=== PATIENT | female | born 1930 | race Caucasian/White ===

== ENCOUNTER 2016-10-16 13:01 | Inpatient (IN) | payer MEDICARE, OTHER ==
[~2016-10-16] VITALS: Ht 152.4 cm; Wt 65.3 kg
[~2016-10-16 13:01] MED LIST: ALBU2.5V38 IH; AMLO5TAB2 PO; ATEN50TA PO; ATOR10TA PO; Acyclovir PO; CETI-194 PO; ERGO50003 PO; ESOM40CA PO; ESTR42.53 VG; EZET10TA PO; FEBU80TA PO; GABA300C PO; GUAI120013 PO; HYDR-3026 PO; MIDO5TAB PO; NITR0.4T6 SL; OXYC1TAB8 PO; PRED5TAB PO; TRAZ-147 PO; TRIA1CAP2 PO; VIT1CAPS7 PO; ZALE10CA PO
--- NOTE | 2016-10-16 13:05 | NUR ---
DR VERGARA AT BEDSIDE FOR EVAL
--- NOTE | 2016-10-16 13:05 | NUR ---
EKG IN PROGRESS
--- NOTE | 2016-10-16 13:08 | NUR ---
JHONATHAN RA FROM HOME FOR SOB EXACERBATION, HX OF COPD, PATIENT HAS CAREGIVER AT BEDSIDE, DENIES PAIN, GIVEN 5 MG ALBUTERAL BREATHING TX ON FIELD, PLACED ON MONITOR UPON ARRIVAL WITH MD AT BEDSIDE, WILL CONTINUE TO MONITOR CLOSELY.
[2016-10-16] MEDS ORDERED: methylPREDNISolone SOD SUCC 125 MG/2ML VIAL ONE (13:10)
[2016-10-16] MEDS ORDERED: IPRATROPIUM NEB FS 0.5 MG/2.5 ML AMPUL.NEB ONE (13:16)
[2016-10-16] MEDS ORDERED: ALBUTEROL FS 2.5 MG/3 ML VIAL.NEB ONE (13:16)
[2016-10-16 13:18] LABS: ABG BASE EXCESS -0.1 mmol/L; ABG OXYGEN SATURATION 87.5 % (92.0-98.5); ABG PCO2 38.2 mmHg (35.0-45.0); ABG PH 7.418 (7.350-7.450); ABG PO2 54.6 mmHg (75.0-100.0); AaDO2 157.8 mmHg; COHb 0.7 % (0.5-1.5); MetHb 0.3 % (0.0-1.5); O2Hb 86.6 % (94.0-97.0); SITE, ABG Left Radial; VENT MODE, BG Nasal Cannula
[2016-10-16 13:21] LABS: BASOPHILS # (AUTO) 0.1 /CMM (0.0-0.2); BASOPHILS % (AUTO) 0.9 % (0.0-2.0); EOSINOPHILS # (AUTO) 0.1 /CMM (0.0-0.7); EOSINOPHILS % (AUTO) 0.7 % (0.0-6.0); HEMATOCRIT 44 % (33-45); HEMOGLOBIN 14.2 g/dL (11.5-14.8); LYMPHOCYTES # (AUTO) 3.2 /CMM (0.8-4.8); LYMPHOCYTES % (AUTO) 22.1 % (20.0-44.0); MEAN CORPUSCULAR HEMOGLOBIN 25 PG (26.0-33.0); MEAN CORPUSCULAR HGB CONC 32 g/dl (31.0-36.0); MEAN CORPUSCULAR VOLUME 79 fL (82-100); MONOCYTES # (AUTO) 0.6 /CMM (0.1-1.30); MONOCYTES % (AUTO) 4.2 % (2.0-12.0); NEUTROPHILS # (AUTO) 10.4 /CMM (1.8-8.9); NEUTROPHILS % (AUTO) 72.1 % (43.0-81.0); PLATELET COUNT (AUTO) 439 /CMM (150-450); WHITE BLOOD COUNT (AUTO) 14.4 K/uL (4.3-11.0)
[2016-10-16 13:28] LABS: CALCIUM, SERUM 9.4 mg/dL (8.5-10.1); CARBON DIOXIDE 30 mmol/L (21-32); CHLORIDE 103 mmol/L (98-107); CREATININE 1.1 mg/dL (0.6-1.3); GLUCOSE 135 mg/dL (74-106); POTASSIUM 3.5 mmol/L (3.5-5.1); SODIUM SERUM 142 mmol/L (136-145); UREA NITROGEN, BLOOD 36 mg/dL (7-18)
[2016-10-16] MEDS ORDERED: LEVO200T8 PO (13:30)
[2016-10-16] MEDS ORDERED: PHEN16.226 PO (13:30)
[2016-10-16] MEDS ORDERED: DIPH1TAB70 PO (13:30)
[2016-10-16] MEDS ORDERED: ALBUTEROL FS 2.5 MG/3 ML VIAL.NEB NEB ONE (13:30)
[2016-10-16] MEDS ORDERED: IPRATROPIUM NEB FS 0.5 MG/2.5 ML AMPUL.NEB NEB ONE (13:30)
[2016-10-16] MEDS ORDERED: DOCU-25 PO (13:30)
[2016-10-16] MEDS ORDERED: AZEL137S7 NS (13:30)
[2016-10-16] MEDS ORDERED: LEVOFLOXACIN 750 MG /D5W 150ML PIGGYBACK IV ONE (13:30)
[2016-10-16] MEDS ORDERED: OXYC-34 PO (13:30)
[2016-10-16] MEDS ORDERED: IV NS 0.9% 1,000 ML BAG IV ONE (13:30)
[2016-10-16] MEDS ORDERED: AMLO5TAB4 PO (13:30)
[2016-10-16] MEDS ORDERED: IPRA0.2S9 IH (13:30)
[2016-10-16] MEDS ORDERED: OXYC30TA86 PO (13:30)
[2016-10-16] MEDS ORDERED: methylPREDNISolone SOD SUCC 125 MG/2ML VIAL IV ONE (13:30)
[2016-10-16] MEDS ORDERED: METH4TAB3 PO (13:32)
[2016-10-16 13:35] LABS: TROPONIN I < 0.017 ng/mL (0.00-0.056)
[2016-10-16] MEDS ORDERED: IV SET PRIMARY 1 EA INFUS.SET MC ONE (13:35)
[2016-10-16] MEDS ORDERED: IV NS 0.9% 2,000 ML ONE (13:35)
[2016-10-16 13:40] LABS: ALANINE AMINOTRANSFERASE 21 U/L (12-78); ALBUMIN 3.3 g/dL (3.4-5.0); ALKALINE PHOSPHATASE 107 U/L (46-116); ASPARTATE AMINOTRANSFERASE 13 U/L (15-37); B-TYPE NATRIURETIC PEPTIDE 769 PG/ML (0-125); BILIRUBIN,DIRECT 0.1 mg/dL (0.0-0.2); BILIRUBIN,TOTAL 0.2 mg/dL (0.2-1.0); TOTAL PROTEIN, SERUM 7.6 g/dL (6.4-8.2)
--- NOTE | 2016-10-16 13:47 | NUR ---
CALLED NURSING SUP. FOR TELE BED
[2016-10-16] MEDS ORDERED: LEVOFLOXACIN 750 MG /D5W 150ML 150 ML IV ONE (14:00)
[2016-10-16] MEDS ORDERED: IV SET PRIMARY PUMP SET 1 EA INFUS.SET MC ONE ×2 (14:00→16:22)
--- NOTE | 2016-10-16 14:01 | NUR ---
TELE ROOM 104
--- NOTE | 2016-10-16 14:08 | NUR ---
EPIC PAGED, BLUEPRINT ENGINEER
[2016-10-16 14:15] LABS: INR 1.1 (0.87-1.13); PROTHROMBIN TIME 11.5 SECS (9.5-12.7)
--- NOTE | 2016-10-16 14:27 | NUR ---
[facility] REPAGED
--- NOTE | 2016-10-16 15:30 | NUR ---
RN NOTE RECEIVED PT ON [place] FROM OSTEOPATHIC MEDICINE TEACHER, PT IS AOX3, NC O2, 5L/MIN, SAT 97% LUNGS SOUNDS RHONCHI, COARSE, PT'S SKIN HOT, DRY TO TOUCH, TEMP 101, DENIES PAIN, IV FLUID RUNNING VIA GRAVITY, LEVOFLOXACIN 750 MG IV RUNNING AT 100 ML/H, PT HAS SPASTIC R SHOULDER, PT ON STREET PHOTOGRAPHER SR 92, IV IN R THUMB 24 G AND LEFT ANTERIOR ANKLE 22 G, IN DIAPER, SKIN INTACT, ABDOMEN DISTENDED, SOFT, BOWEL SOUNDS PRESENT, PT CO DIARRHEA FOR THE LAST COUPLE DAYS, NO NAUSEA/VOMITING, PT HAS HISTORY OF 2 EPISODES OF PNEUMONIA IN THE PAST 6 MONTHS. BED IN LOW AND LOCKED POSITION, CALL LIGHT WITHIN REACH, WILL CONTINUE TO MONITOR AND CARRY OUT ORDERS.
[2016-10-16 16:00] VITALS: BP 125/54
[2016-10-16] MEDS ORDERED: ACETAMINOPHEN 325 MG TABLET PO PRN (16:00)
[2016-10-16] MEDS ORDERED: MAG HYDROX/AL HYDROX/SIMETH 30 ML UDC PO PRN (16:00)
[2016-10-16] MEDS ORDERED: ALBUTEROL FS 2.5 MG/3 ML VIAL.NEB IH PRN (16:00)
[2016-10-16] MEDS ORDERED: BELLADONNA ALK/PHENOBARB TAB 16.2 MG TABLET PO PRN (16:00)
[2016-10-16] MEDS ORDERED: ENOXAPARIN SODIUM 40 MG/0.4 ML DISP.SYRIN SQ SCH (16:00)
[2016-10-16] MEDS ORDERED: DIPHENOXYLATE HCL/ATROP SULF 1 UDTAB TABLET PO PRN (16:00)
[2016-10-16] MEDS ORDERED: NITROGLYCERIN 0.4 MG/TAB BOTTLE SL PRN (16:00)
[2016-10-16] MEDS ORDERED: MIDODRINE HCL (5MG) 5 MG TABLET PO PRN (16:00)
[2016-10-16] MEDS ORDERED: ONDANSETRON HCL/PF 4 MG/2 ML VIAL IVP PRN (16:00)
[2016-10-16] MEDS ORDERED: IPRATROPIUM NEB FS 0.5 MG/2.5 ML AMPUL.NEB IH PRN (16:00)
[2016-10-16] MEDS ORDERED: ZOLPIDEM TARTRATE 5 MG TABLET PO PRN (16:00)
[2016-10-16] MEDS ORDERED: MAGNESIUM HYDROXIDE 30 ML UDC PO PRN (16:00)
[2016-10-16] MEDS ORDERED: LEVOFLOXACIN 500 MG /D5W 100ML 500 MG in PREMIX 1 EA IV ONE (16:30)
[2016-10-16] MEDS ORDERED: ALBUTEROL FS 2.5 MG/3 ML VIAL.NEB NEB PRN (16:30)
[2016-10-16] MEDS ORDERED: FEE PK DOSING 1 MIN EA MC ONE (16:56)
[2016-10-16] MEDS ORDERED: VANCOMYCIN 1.25 GM in IV D5W 500 ML IV ONE (17:00)
[2016-10-16] MEDS: ATORVASTATIN 10 MG TABLET PO SCH (17:28)
[2016-10-16] MEDS: methylPREDNISolone SOD SUCC 40 MG/ML VIAL IV SCH (17:28)
[2016-10-16] MEDS: GABAPENTIN 300 MG CAPSULE PO SCH (17:28)
[2016-10-16] MEDS: ENOXAPARIN SODIUM 30 MG/0.3 ML DISP.SYRIN SQ SCH (17:29)
[2016-10-16] MEDS: IV NS 0.9% 1,000 ML IV PRN (17:32)
[2016-10-16] MEDS ORDERED: SECONDARY IV SET 1 EA INFUS.SET MC ONE (18:37)
[2016-10-16] MEDS: MEROPENEM 500 MG in IV NS 0.9% 50 ML IV SCH (18:46)
[2016-10-16 20:00] VITALS: BP 91/52
--- NOTE | 2016-10-16 20:06 | NUR ---
INITIAL RN NOTES RECEIVED PT N/A AOX3 ABLE TO VERBALIZE NEEDS, DENIES ANY PAIN, WITH STRONG PRODUCTIVE COUGH, ABLE TO SPIT, ON NC@3L AT THIS TIME, PAPER CONE MAKER BY BEDSIDE, ENDORSED BY AM SHIFT RN TO GIVE 1700 VANCO, WAS NOT ABLE TO GIVE DOSE, GIVEN REQUESTED, PT APPEARS COMFORTABLE AT THIS TIME WITH NO SIGN OF SOB, HOB ELEVATED 02 SAT 94%.
[2016-10-17] VITALS: BP 113/42
[2016-10-17 04:00] VITALS: BP 134/47
[2016-10-17] MEDS: MEROPENEM 500 MG in IV NS 0.9% 50 ML IV SCH ×2 (05:05→16:47)
--- NOTE | 2016-10-17 06:21 | NUR ---
CLOSING RN NOTES ENDORSED PT N/A AOX3 ABLE TO VERBALIZE NEEDS, DENIES ANY PAIN, WITH STRONG PRODUCTIVE COUGH, ABLE TO SPIT, ON NC@3L AT THIS TIME, , ENDORSED BY AM SHIFT RN TO GIVE 1700 VANCO, WAS NOT ABLE TO GIVE DOSE, GIVEN REQUESTED, PT APPEARS COMFORTABLE AT THIS TIME WITH NO SIGN OF SOB, HOB ELEVATED 02 SAT 94%.
[2016-10-17 06:33] LABS: BASOPHILS % (AUTO) 0.1 % (0.0-2.0); HEMATOCRIT 33 % (33-45); LYMPHOCYTES # (AUTO) 0.7 /CMM (0.8-4.8); LYMPHOCYTES % (AUTO) 5.1 % (20.0-44.0); MEAN CORPUSCULAR HEMOGLOBIN 27 PG (26.0-33.0); MEAN CORPUSCULAR HGB CONC 34 g/dl (31.0-36.0); MEAN CORPUSCULAR VOLUME 79 fL (82-100); MONOCYTES # (AUTO) 0.8 /CMM (0.1-1.30); MONOCYTES % (AUTO) 5.3 % (2.0-12.0); NEUTROPHILS # (AUTO) 12.9 /CMM (1.8-8.9); NEUTROPHILS % (AUTO) 89.5 % (43.0-81.0); PLATELET COUNT (AUTO) 295 /CMM (150-450); RDW COEFFICIENT OF VARIATION 14.8 (11.5-15.0); RED BLOOD CELL COUNT(AUTO) 4.11 MIL/uL (4.0-5.2); WHITE BLOOD COUNT (AUTO) 14.4 K/uL (4.3-11.0)
[2016-10-17] MEDS: PANTOPRAZOLE 40 MG TABLET.DR PO SCH ×2 (06:54→08:50)
[2016-10-17 06:55] LABS: CHOLESTEROL 115 mg/dL (<200); HDL CHOLESTEROL 37 mg/dL (40-60); LDL 50 mg/dL (0-99); TRIGLYCERIDES 127 mg/dL (30-150)
--- NOTE | 2016-10-17 07:00 | NUR ---
RN NOTES RECEIVED PT ON BED , AOX3 ABLE TO VERBALIZE NEEDS,RESPIRATION EVEN AND UNLABORED, NO DISTRESS NOTED , ON NC@3L O2 SAT WNL, ON TELE A PACING , IN 60'S , SR UP x3, CALL LIGHT WITHIN EASY REACH, HOB ELEVATED , CONTINUE TO MONITOR PT CLOSELY AND NOTIFY MD FOR ANY SIGNIFICANT CHANGES .
[2016-10-17 07:06] LABS: CALCIUM, SERUM 8.4 mg/dL (8.5-10.1); CARBON DIOXIDE 25 mmol/L (21-32); CHLORIDE 105 mmol/L (98-107); CREATININE 0.9 mg/dL (0.6-1.3); GLUCOSE 142 mg/dL (74-106); MAGNESIUM 1.9 mg/dL (1.8-2.4); PHOSPHORUS 2.3 mg/dL (2.5-4.9); SODIUM SERUM 139 mmol/L (136-145); UREA NITROGEN, BLOOD 26 mg/dL (7-18)
[2016-10-17] MEDS: LEVOTHYROXINE SODIUM 125 MCG TABLET PO SCH (07:16)
[2016-10-17 08:00] VITALS: BP 144/46
[2016-10-17] MEDS: methylPREDNISolone SOD SUCC 40 MG/ML VIAL IV SCH ×3 (08:49→16:47)
[2016-10-17] MEDS: GABAPENTIN 300 MG CAPSULE PO SCH ×3 (08:50→16:47)
[2016-10-17] MEDS: cetrizine 10 MG TABLET PO SCH (08:50)
[2016-10-17] MEDS: AMLODIPINE BESYLATE 5 MG TABLET PO SCH (08:50)
[2016-10-17] MEDS: DOCUSATE SODIUM 100 MG CAPSULE PO SCH (08:50)
[2016-10-17] MEDS: EZETIMIBE 10 MG TABLET PO SCH (08:50)
[2016-10-17] MEDS: ATENOLOL 50 MG TABLET PO SCH (08:51)
[2016-10-17] MEDS: HYDROCODONE/APAP 5/325MG 1 EACH TABLET PO PRN ×2 (10:05→15:15)
[2016-10-17] MEDS: IV NS 0.9% 1,000 ML IV PRN (11:16)
--- NOTE | 2016-10-17 12:00 | NUR ---
RN NOTES PT AT REST , RESPIRATION EVEN AND UNLBORED, CONTINUE TO MONITOR.
[2016-10-17] MEDS ORDERED: IPRATROPIUM NEB FS 0.5 MG/2.5 ML AMPUL.NEB IH SCH (15:30)
[2016-10-17 16:00] VITALS: BP_SYST 133; BP_SYST 145; BP_DIAS 45; BP_DIAS 53
[2016-10-17] MEDS ORDERED: K PHOS NEUTRAL 250 MG TABLET PO ONE (16:00)
--- NOTE | 2016-10-17 16:00 | NUR ---
RN NOTES PT TRANSFERRED TO ROOM 204 IN STABLE CONDITION , REPORT GIVEN TO AYDIN FOR CONTINUITY OF CARE.
[2016-10-17 16:15] VITALS: BP 133/53
--- NOTE | 2016-10-17 16:15 | NUR ---
MS/RN NOTES RECEIVED PATIENT FROM [place] IN STABLE CONDITION, AWAKE AND ORIENTED X3, CAREGIVER AT BEDSIDE. PATIENT APPEARS CALM AND COMFORTABLE. NO S/S OF ACUTE DISTRESS/DISCOMFORT NOTED HOWEVER COMPLAINTS OF BILATERAL HEEL PAIN RATED 7/10. BREATHING EVEN AND UNLABORED, ON 02 3LPM VIA NC. VITAL SIGNS STABLE AND WITHIN NORMAL LIMITS. IV TO LEFT DORSAL FOOT 22 G INTACT AND PATENT AND IV TO RIGHT THUMB G24 INTACT AND PATENT. IV FLUIDS INFUSING WELL WITH SCHEDULED MERREM TO BE GIVEN. SAFETY MEASURES RENDERED, CALL LIGHT PLACED WITHIN REACH. WILL CONTINUE TO MONITOR.
[2016-10-17] MEDS: ENOXAPARIN SODIUM 30 MG/0.3 ML DISP.SYRIN SQ SCH (16:49)
[2016-10-17] MEDS: LACTOBACILLUS RHAMNOSUS GG 1 EACH CAP.SPRINK PO SCH (16:50)
[2016-10-17] MEDS ORDERED: LEVOFLOXACIN 250 MG /D5W 50 ML 250 MG in PREMIX 1 EA IV SCH (17:00)
[2016-10-17] MEDS ORDERED: VANCOMYCIN 1 GM in IV D5W 250 ML IV SCH (17:00)
[2016-10-17] MEDS: ATORVASTATIN 10 MG TABLET PO SCH (17:53)
[2016-10-17] MEDS: LEVOFLOXACIN 750 MG /D5W 150ML 750 MG in PREMIX 1 EA IV SCH (17:53)
--- NOTE | 2016-10-17 18:43 | NUR ---
MS/RN NOTES PATIENT RESTING IN BED WITH CAREGIVER AT BEDSIDE. APPEARS STABLE WITH NO SIGNIFICANT CHANGES. ALL DUE MEDS GIVEN, ALL IV SCHEDULED ANTIBIOTICS ADMINISTERED, IVF INFUSING WELL. PATIENT KEPT CLEAN AND COMFORTABLE. SAFETY MEASURES TAKEN, CALL LIGHT PLACED WITHIN REACH. BED LOCKED IN LOWEST POSITION,RAILS UP. WILL ENDORSE CARE TO CHAINSTITCH HEMMER FOR MARILEE.
--- NOTE | 2016-10-17 19:30 | NUR ---
RN NOTES RECEIVED PT. AWAKE ON BED, A/OX3, CAREGIVER AT BEDSIDE, DENIES PAIN, NO SOB, CALL LIGHT WITHIN REACH, SIDERAILS UPX2 CONTINUE TO MONITOR
[2016-10-17 20:00] VITALS: BP 144/66
[2016-10-17] MEDS: SONATA 10 MG PO PRN (23:40)
[2016-10-18] MEDS: GUAIFENESIN LA 600 MG TABLET.SA PO PRN (02:11)
--- NOTE | 2016-10-18 02:18 | NUR ---
RN NOTES PT IS COUGHING A LOT MUCINEX 600 MG PO GIVEN ORDERED, V/S STABLE
[2016-10-18] MEDS: MEROPENEM 500 MG in IV NS 0.9% 50 ML IV SCH ×2 (05:39→17:23)
--- NOTE | 2016-10-18 06:40 | NUR ---
RN NOTES AWAKE, MORNING CARE RENDERED, IV LINE PATENT NO REDNESS OR SWOLLEN, CALL LIGHT WITHIN REACH, SIDERAILS UPX2 PT. NEEDS ATTENDED
[2016-10-18 07:00] LABS: HEMATOCRIT 35 % (33-45); HEMOGLOBIN 11.4 g/dL (11.5-14.8); LYMPHOCYTES # (AUTO) 0.7 /CMM (0.8-4.8); LYMPHOCYTES % (AUTO) 5.5 % (20.0-44.0); MEAN CORPUSCULAR HEMOGLOBIN 26 PG (26.0-33.0); MEAN CORPUSCULAR HGB CONC 33 g/dl (31.0-36.0); MEAN CORPUSCULAR VOLUME 80 fL (82-100); MONOCYTES % (AUTO) 7.4 % (2.0-12.0); NEUTROPHILS # (AUTO) 11.7 /CMM (1.8-8.9); NEUTROPHILS % (AUTO) 87.1 % (43.0-81.0); PLATELET COUNT (AUTO) 291 /CMM (150-450); RDW COEFFICIENT OF VARIATION 15.2 (11.5-15.0); RED BLOOD CELL COUNT(AUTO) 4.39 MIL/uL (4.0-5.2); WHITE BLOOD COUNT (AUTO) 13.4 K/uL (4.3-11.0)
[2016-10-18 07:34] LABS: CALCIUM, SERUM 8.6 mg/dL (8.5-10.1); CARBON DIOXIDE 31 mmol/L (21-32); CHLORIDE 104 mmol/L (98-107); CREATININE 0.8 mg/dL (0.6-1.3); GLUCOSE 131 mg/dL (74-106); MAGNESIUM 1.8 mg/dL (1.8-2.4); POTASSIUM 3.4 mmol/L (3.5-5.1); SODIUM SERUM 144 mmol/L (136-145); UREA NITROGEN, BLOOD 25 mg/dL (7-18)
--- NOTE | 2016-10-18 07:37 | NUR ---
MS/RN NOTES RECEIVED PATIENT RESTING IN BED, AWAKE AND ORIENTED X3. NO S/S OF ACUTE DISTRESS NOTED, DENIES PAIN OR DISCOMFORT AT THIS TIME. APPEARS CALM AND COMFORTABLE. NO SOB NOTED, ON 02 3LPM VIA NC. IV TO LEFT DORSAL FOOT 22 G INTACT AND PATENT AND IV TO RIGHT THUMB G24 INTACT, IV FLUIDS INFUSING WELL. SAFETY MEASURES RENDERED, CALL LIGHT PLACED WITHIN REACH. WILL CONTINUE TO MONITOR.
[2016-10-18 08:00] VITALS: BP 161/93
[2016-10-18] MEDS: LACTOBACILLUS RHAMNOSUS GG 1 EACH CAP.SPRINK PO SCH ×2 (08:00→17:23)
[2016-10-18] MEDS: LEVOTHYROXINE SODIUM 125 MCG TABLET PO SCH (08:00)
[2016-10-18] MEDS: DOCUSATE SODIUM 100 MG CAPSULE PO SCH (08:01)
[2016-10-18] MEDS: PANTOPRAZOLE 40 MG TABLET.DR PO SCH (08:01)
[2016-10-18] MEDS: GABAPENTIN 300 MG CAPSULE PO SCH ×3 (08:01→17:23)
[2016-10-18] MEDS: AMLODIPINE BESYLATE 5 MG TABLET PO SCH (08:01)
[2016-10-18] MEDS: EZETIMIBE 10 MG TABLET PO SCH (08:01)
[2016-10-18] MEDS: ATENOLOL 50 MG TABLET PO SCH (08:01)
[2016-10-18] MEDS: methylPREDNISolone SOD SUCC 40 MG/ML VIAL IV SCH ×3 (08:02→17:23)
[2016-10-18] MEDS ORDERED: POTASSIUM CHLORIDE 20 MEQ TAB.PRT.SR PO SCH (10:00)
[2016-10-18] MEDS: cetrizine 10 MG TABLET PO SCH (10:20)
[2016-10-18] MEDS: HYDROCODONE/APAP 5/325MG 1 EACH TABLET PO PRN ×2 (10:20→15:27)
--- NOTE | 2016-10-18 10:30 | NUR ---
MS/RN NOTES PATIENT COMPLAINTS OF 8/10 ABDOMINAL PAIN INCREASES WITH COUGH AND MOVEMENT. ADMINISTERED NORCO 5-325MG 1 TAB PO FOR PAIN MANAGEMENT. WILL RE-ASSESS AT SCHEDULED TIME.
[2016-10-18] MEDS: IPRATROPIUM NEB FS 0.5 MG/2.5 ML AMPUL.NEB IH SCH ×4 (12:56→23:01)
[2016-10-18] MEDS: ALBUTEROL FS 2.5 MG/3 ML VIAL.NEB NEB SCH ×4 (12:56→23:01)
--- NOTE | 2016-10-18 13:15 | NUR ---
MS/RN NOTES PATIENT NOTED WITH SOB, LABORED BREATHING, WHEEZING UPON AUSCULTATION. RT NOTIFIED TO ADMINISTER BREATHING TX DIRECTED. PATIENTS BREATHING STATUS STABILIZED, RESPIRATIONS UNLABORED.
[2016-10-18 16:00] VITALS: BP 145/61
[2016-10-18] MEDS ORDERED: ERGOCALCIFEROL (VITAMIN D 2) 50,000 UNIT CAPSULE PO SCH (16:00)
[2016-10-18] MEDS: ATORVASTATIN 10 MG TABLET PO SCH (17:23)
[2016-10-18] MEDS: ENOXAPARIN SODIUM 30 MG/0.3 ML DISP.SYRIN SQ SCH (17:25)
--- NOTE | 2016-10-18 18:42 | NUR ---
MS/RN NOTES PATIENT RESTING IN BED COMFORTABLY, NO SIGNIFICANT CHANGES NOTED. APPEARS STABLE AT THIS TIME. CAREGIVER AT BEDSIDE. ALL DUE MEDICATIONS GIVEN, IV ANTIBIOTICS INFUSED, TOLERATED WELL. PLAN OF TREATMENT CARRIED OUT DIRECTED. IV FLUIDS INFUSING WELL TO LEFT DORSAL FOOT. PATIENT TAKEN TO CT SCAN D/T COUGHING UP BLOOD. PENDING RESULTS. SAFETY MEASURES RENDERED, CALL LIGHT PLACED WITHIN REACH. WILL ENDORSE CARE TO INTELLIGENCE INTERN FOR MARILEE.
--- NOTE | 2016-10-18 19:30 | NUR ---
MS RN INITIAL NOTE RECEIVED PT SLEEPING BUT EASILY AROUSED, NO COMPLAINT OF PAIN OR RESPIRATORY DISTRESS NOTED DURING PHYSICAL ASSESSMENT, REGULATORY AFFAIRS INTERN AT BEDSIDE, PT IS CLEAN/DRY AND COMFORTABLE, SAFETY MEASURES WILL BE MAINTAINED AT ALL TIMES, NEEDS WILL BE ANTICIPATED AND ATTENDED TO PROMPTLY.
[2016-10-18 20:00] VITALS: BP 124/52
[2016-10-19] MEDS: IV NS 0.9% 1,000 ML IV PRN ×2 (01:05→15:24)
[2016-10-19] MEDS: HYDROCODONE/APAP 5/325MG 1 EACH TABLET PO PRN ×5 (01:45→21:02)
[2016-10-19] MEDS: IPRATROPIUM NEB FS 0.5 MG/2.5 ML AMPUL.NEB IH SCH ×6 (02:20→23:30)
[2016-10-19] MEDS: ALBUTEROL FS 2.5 MG/3 ML VIAL.NEB NEB SCH ×6 (02:20→23:30)
[2016-10-19] MEDS: MEROPENEM 500 MG in IV NS 0.9% 50 ML IV SCH ×2 (05:45→16:21)
--- NOTE | 2016-10-19 06:19 | NUR ---
MS RN CLOSING NOTE PT REMAINED STABLE DURING DELIVERY DRIVER, NO SIGNIFICANT CHANGE IN CONDITION NOTED, WILL ENDORSE TO INCOMING NURSE FOR MARILEE.
[2016-10-19 06:25] LABS: CALCIUM, SERUM 8.2 mg/dL (8.5-10.1); CARBON DIOXIDE 29 mmol/L (21-32); CHLORIDE 104 mmol/L (98-107); CREATININE 0.8 mg/dL (0.6-1.3); GLUCOSE 133 mg/dL (74-106); POTASSIUM 3.4 mmol/L (3.5-5.1); SODIUM SERUM 141 mmol/L (136-145); UREA NITROGEN, BLOOD 24 mg/dL (7-18)
--- NOTE | 2016-10-19 07:30 | NUR ---
MS RN OPENING RECEIVED PATIENT A/OX4 STATES BREATHING IS STILL SLIGHTLY LABORED BUT "MUCH BETTER THAN BEFORE" PATIENT STATES CONSTANT PAIN IN BACK AND WILL GIVE PRN NORCO FOR PATIENT. PATIENT STATES NO OTHER NEEDS AT THIS TIME WITH ALL NEEDS IN REACH. PATIENT APPEARS STABLE AT THIS TIME. WILL ROUND Q2H OR LESS. CALL LIGHT IN REACH, BED LOWERED AND LOCKED, RAILS UPX3 FOR SAFETY WITH BED ALARM ON.
[2016-10-19] MEDS: PANTOPRAZOLE 40 MG TABLET.DR PO SCH (07:37)
[2016-10-19] MEDS: LEVOTHYROXINE SODIUM 125 MCG TABLET PO SCH (07:38)
[2016-10-19] MEDS: Z GUARD REMEDY 2 OZ OINT TP PRN ×3 (07:42→16:22)
[2016-10-19 08:00] VITALS: BP 175/79
[2016-10-19] MEDS: LACTOBACILLUS RHAMNOSUS GG 1 EACH CAP.SPRINK PO SCH ×2 (08:05→16:21)
[2016-10-19] MEDS: methylPREDNISolone SOD SUCC 40 MG/ML VIAL IV SCH ×3 (08:05→16:21)
[2016-10-19] MEDS: GABAPENTIN 300 MG CAPSULE PO SCH ×3 (08:05→16:21)
[2016-10-19] MEDS: cetrizine 10 MG TABLET PO SCH (08:05)
[2016-10-19] MEDS: AMLODIPINE BESYLATE 5 MG TABLET PO SCH (08:06)
[2016-10-19] MEDS: ATENOLOL 50 MG TABLET PO SCH (08:06)
[2016-10-19] MEDS: DOCUSATE SODIUM 100 MG CAPSULE PO SCH (08:06)
[2016-10-19] MEDS: EZETIMIBE 10 MG TABLET PO SCH (08:06)
[2016-10-19 08:08] VITALS: BP 175/79
--- NOTE | 2016-10-19 09:13 | NUR ---
MS RN NOTES PATIENT MEDICATION SONATA BROUGHT UP BY PHARMACY. PLACED IN NARCOTIC BOX. 5 CAPSULES IN TOTAL
[2016-10-19] MEDS ORDERED: POTASSIUM CHLORIDE 20 MEQ TAB.PRT.SR PO SCH (11:00)
[2016-10-19] MEDS: GUAIFENESIN LA 600 MG TABLET.SA PO PRN (11:57)
[2016-10-19] MEDS ORDERED: POLYETHYLENE GLYCOL 3350 17 GM POWD.PACK PO PRN (14:00)
--- NOTE | 2016-10-19 14:00 | NUR ---
MS RN NOTES ROSLYN YU AT BEDSIDE
[2016-10-19 16:00] VITALS: BP 166/66
--- NOTE | 2016-10-19 16:25 | NUR ---
MS RN NOTES NOTIFIED ROSLYN YU OF PATIENT HTN, PENDING ORDERS
[2016-10-19] MEDS: ENOXAPARIN SODIUM 30 MG/0.3 ML DISP.SYRIN SQ SCH (16:33)
[2016-10-19] MEDS ORDERED: CLONIDINE HCL 0.1 MG TABLET PO PRN (17:00)
[2016-10-19] MEDS: LEVOFLOXACIN 750 MG /D5W 150ML 750 MG in PREMIX 1 EA IV SCH (17:03)
[2016-10-19] MEDS: ATORVASTATIN 10 MG TABLET PO SCH (17:03)
--- NOTE | 2016-10-19 19:12 | NUR ---
MS RN CLOSING PATIENT STABLE. PAIN MANAGED WITH PRN MEDICATIONS AND NON PHARM MEASURES. ALL DUE MEDS GIVEN AND ALL NEEDS MET. CALL LIGHT IN REACH, BED LOWERED AND LOCKED, RAILS UPX3 FOR SAFETY AND CARE ENDORSED TO RN FOR MARILEE. CAREGIVER AT BEDSIDE
--- NOTE | 2016-10-19 19:30 | NUR ---
MS RN INITIAL NOTE RECEIVED PT WAKE AND ALERT ORIENTED X3, PT IS BR AND WILL BE REPOSITIONED EVERY TWO HOURS TO PREVENT SKIN BREAKDOWN AND TO PROMOTE COMFORT, PT DOES INTERMITTENTLY REQUEST PAIN MEDICATION BUT IS COMFORTABLE AT THIS MOMENT, NO RESPIRATORY DISTRESS NOTED DURING PHYSICAL ASSESSMENT, SAFETY MEASURES WILL BE MAINTAINED AT AL TIMES, NEEDS WILL BE ATTENDED TO PROMPTLY.
[2016-10-19 21:27] VITALS: BP 139/55
[2016-10-19] MEDS: SONATA 10 MG PO PRN (23:39)
[2016-10-20] MEDS: HYDROCODONE/APAP 5/325MG 1 EACH TABLET PO PRN ×3 (01:55→19:57)
[2016-10-20] MEDS: IPRATROPIUM NEB FS 0.5 MG/2.5 ML AMPUL.NEB IH SCH ×6 (02:33→22:43)
[2016-10-20] MEDS: ALBUTEROL FS 2.5 MG/3 ML VIAL.NEB NEB SCH ×6 (02:33→22:43)
[2016-10-20] MEDS: MEROPENEM 500 MG in IV NS 0.9% 50 ML IV SCH ×2 (05:25→17:05)
--- NOTE | 2016-10-20 07:13 | NUR ---
MS RN CLOSING NOTE PT REMAINED STABLE, NO SIGNIFICANT CHANGE IN CONDITION NOTED DURING NIGHT, WILL ENDORSE TO INCOMING NURSE FOR MARILEE.
[2016-10-20] MEDS: LEVOTHYROXINE SODIUM 125 MCG TABLET PO SCH (07:34)
[2016-10-20 07:36] LABS: CALCIUM, SERUM 8.1 mg/dL (8.5-10.1); CARBON DIOXIDE 31 mmol/L (21-32); CREATININE 0.8 mg/dL (0.6-1.3); GLUCOSE 101 mg/dL (74-106); UREA NITROGEN, BLOOD 23 mg/dL (7-18)
[2016-10-20 07:46] LABS: CHLORIDE 102 mmol/L (98-107); SODIUM SERUM 141 mmol/L (136-145)
[2016-10-20 08:00] VITALS: BP 184/82
--- NOTE | 2016-10-20 08:15 | NUR ---
AM RN NOTE Received patient sleeping comfortably in her bed, On O2 2L/min via NC. No SOB noted resp even and non-labored. IV sites intact and patent. Bed in low locked position. Will continue to monitor.
[2016-10-20 08:18] LABS: POTASSIUM 2.8 mmol/L (3.5-5.1)
--- NOTE | 2016-10-20 08:31 | NUR ---
WOUND CARE CONSULT: PT PRESENTS WITH BILATERAL FOOT AND HEEL REDNESS, PRESENT ON ADMISSION. REDNESS TO HEELS IS BLANCHING. ENTIRE PLANTAR SURFACES OF FEET HAVE BLANCHING REDNESS. PT NOTED TO BE INCONTINENT OF URINE. ALL SKIN PROTECTION MEASURES IN PLACE. DISCUSSED WITH NURSING STAFF. WILL SEE PRN. PIERRE IN AGREEMENT WITH PLAN OF CARE. Addendum: 10/20/16 at 0834 by FRANTZ MEADOWS WNDNU Amended: Links added.
--- NOTE | 2016-10-20 08:43 | NUR ---
AM RN NOTE K=2.[address] Pichardo with new order for Kcl 60 meq PO x1 now, order noted and carried out
[2016-10-20] MEDS: AMLODIPINE BESYLATE 5 MG TABLET PO SCH (09:05)
[2016-10-20] MEDS: GABAPENTIN 300 MG CAPSULE PO SCH ×3 (09:05→16:09)
[2016-10-20] MEDS: methylPREDNISolone SOD SUCC 40 MG/ML VIAL IV SCH ×2 (09:06→12:55)
[2016-10-20] MEDS: DOCUSATE SODIUM 100 MG CAPSULE PO SCH (09:06)
[2016-10-20] MEDS: LACTOBACILLUS RHAMNOSUS GG 1 EACH CAP.SPRINK PO SCH ×2 (09:06→16:09)
[2016-10-20] MEDS: POTASSIUM CHLORIDE 20 MEQ TAB.PRT.SR PO SCH ×3 (09:06→11:16)
[2016-10-20] MEDS: ATENOLOL 50 MG TABLET PO SCH (09:06)
[2016-10-20] MEDS: EZETIMIBE 10 MG TABLET PO SCH (09:06)
[2016-10-20] MEDS: cetrizine 10 MG TABLET PO SCH (09:07)
[2016-10-20 16:00] VITALS: BP 166/74
[2016-10-20] MEDS: predniSONE 20 MG TABLET PO SCH (16:11)
[2016-10-20] MEDS: ENOXAPARIN SODIUM 30 MG/0.3 ML DISP.SYRIN SQ SCH (16:16)
[2016-10-20] MEDS: ATORVASTATIN 10 MG TABLET PO SCH (17:04)
--- NOTE | 2016-10-20 18:44 | NUR ---
AM RN NOTE Patient awake, A/O X3. Denies any pain or discomfort at this time. Pt noted with slight blood in sputum. Pt stated its been going on for 3 days. Called Epic exchange and Dr. Morris is covering for Dr. Pichardo, new orders given by Dr. Morris noted and carried out. Will endorse care to next shift.
--- NOTE | 2016-10-20 19:40 | NUR ---
MS RN NOTE: PATIENT RESTING IN BED, NO ACUTE DISTRESS NOTED. BREATHING EVEN AND UNLABORED, NO SOB NOTED. IV TO RIGHT THUMB IN PLACE. IV TO LEFT FOOT IN PLACE INFUSING NS AT 75 ML/HR. BED LOCKED AND IN LOWEST POSITION, CALL LIGHT IN REACH. WILL CONTINUE TO MONITOR.
[2016-10-20] MEDS: IV NS 0.9% 1,000 ML IV PRN (19:52)
[2016-10-20] MEDS: GUAIFENESIN/CODEINE 10 ML UDC PO PRN (19:57)
--- NOTE | 2016-10-20 20:00 | NUR ---
MS RN NOTE: PATIENT COMPLAINS OF PAIN TO ABDOMEN FROM COUGHING /10, NORCO 5/325 MG ORAL GIVEN PER MD ORDER AND ROBITUSSIN AC GIVEN PER MD ORDER. WILL CONTINUE TO MONITOR.
[2016-10-20 20:04] VITALS: BP 146/66
[2016-10-20] MEDS: SONATA 10 MG PO PRN (21:34)
--- NOTE | 2016-10-20 21:35 | NUR ---
MS RN NOTE: PATIENT REQUESTING FOR SONATA FOR SLEEP. SONATA 10MG ORAL GIVEN PER MD ORDER. WILL CONTINUE TO MONITOR.
[2016-10-20] MEDS ORDERED: TRAZODONE 50 MG TABLET PO SCH (22:00)
--- NOTE | 2016-10-20 22:45 | NUR ---
MS RN NOTE: PATIENT TOOK SLEEPING MEDICATIONS AND HAS BREATHING TREATMENT SCHEDULED AT 2330 AND 0330 AND REFUSES TREATMENT IF PATIENT IS SLEEPING. PATIENT DENIES SOB, WILL CONTINUE TO MONITOR.
[2016-10-21] MEDS: HYDROCODONE/APAP 5/325MG 1 EACH TABLET PO PRN ×3 (01:07→12:29)
--- NOTE | 2016-10-21 01:10 | NUR ---
MS RN NOTE: PATIENT COMPLAINS OF JOINT PAINS 11/09, NORCO 5/325 MG ORAL GIVEN PER MD ORDER. WILL CONTINUE TO MONITOR.
[2016-10-21] MEDS: IPRATROPIUM NEB FS 0.5 MG/2.5 ML AMPUL.NEB IH SCH ×4 (03:00→15:54)
[2016-10-21] MEDS: ALBUTEROL FS 2.5 MG/3 ML VIAL.NEB NEB SCH ×4 (03:00→15:54)
[2016-10-21] MEDS: GUAIFENESIN/CODEINE 10 ML UDC PO PRN (06:02)
[2016-10-21] MEDS: MEROPENEM 500 MG in IV NS 0.9% 50 ML IV SCH ×2 (06:02→16:18)
[2016-10-21] MEDS: IV NS 0.9% 1,000 ML IV PRN (06:02)
--- NOTE | 2016-10-21 06:15 | NUR ---
PT HAVING SOB AND GOT HER BREATHING TX EARLY. WILL CONT TO MONITOR.
--- NOTE | 2016-10-21 06:30 | NUR ---
MS RN NOTE: PATIENT RESTING IN BED, NO ACUTE DISTRESS NOTED. BREATHING EVEN AND UNLABORED. PATIENT WITH SOB, REQUESTED FOR RT FOR BREATHING TREATMENT. IV TO RIGHT THUMB IN PLACE. IV TO LEFT FOOT IN PLACE INFUSING NS AT 75 ML/HR. BED LOCKED AND IN LOWEST POSITION, CALL LIGHT IN REACH. WILL ENDORSE TO DAY NURSE TO CONTINUE WITH PLAN OF CARE.
[2016-10-21 06:53] LABS: CALCIUM, SERUM 8.1 mg/dL (8.5-10.1); CARBON DIOXIDE 27 mmol/L (21-32); CHLORIDE 104 mmol/L (98-107); CREATININE 0.8 mg/dL (0.6-1.3); GLUCOSE 117 mg/dL (74-106); POTASSIUM 3.7 mmol/L (3.5-5.1); SODIUM SERUM 141 mmol/L (136-145); UREA NITROGEN, BLOOD 27 mg/dL (7-18)
--- NOTE | 2016-10-21 07:26 | NUR ---
MS RN OPENING RECEIVED PATIENT A/OX4 STATES SHE IS WHEEZING BUT NO AUDIBLE WHEEZING AT THIS TIME. STATES PAIN 11/09 WILL GIVE NORCO. PATIENT DENIES SOB AT THIS TIME. IVF RUNNING ORDERED, STATES NO NEEDS AT THIS TIME. SENIOR CLERK CLEANING PATIENT SKIN AND CHANGING LINEN AT THIS TIME. CALL LIGHT IN REACH,BED LOWERED AND LOCKED,RAILS UPX3 FOR SAFETY, PATIENT ASSISTED TO POSITION OF COMFORT HEELS OFFLOADED. WILL ROUND Q2H OR LESS PER NEEDS
--- NOTE | 2016-10-21 07:47 | NUR ---
MS RN NOTES PATIENT ASSISTED INTO CHAIR FOR BREAKFAST. PATIENT IS AWARE SHE IS NEEDING NEW IV ACCESS. SHE WANTS TO FINISH BREAKFAST FIRST
[2016-10-21 08:00] VITALS: BP 168/80
[2016-10-21] MEDS: LACTOBACILLUS RHAMNOSUS GG 1 EACH CAP.SPRINK PO SCH ×2 (08:12→16:45)
[2016-10-21] MEDS: AMLODIPINE BESYLATE 5 MG TABLET PO SCH (08:12)
[2016-10-21] MEDS: LEVOTHYROXINE SODIUM 125 MCG TABLET PO SCH (08:13)
[2016-10-21] MEDS: DOCUSATE SODIUM 100 MG CAPSULE PO SCH (08:13)
[2016-10-21] MEDS: predniSONE 20 MG TABLET PO SCH (08:13)
[2016-10-21] MEDS: PANTOPRAZOLE 40 MG TABLET.DR PO SCH (08:13)
[2016-10-21] MEDS: EZETIMIBE 10 MG TABLET PO SCH (08:13)
[2016-10-21] MEDS: ATENOLOL 50 MG TABLET PO SCH (08:13)
[2016-10-21] MEDS: Z GUARD REMEDY 2 OZ OINT TP PRN (08:13)
[2016-10-21] MEDS: GABAPENTIN 300 MG CAPSULE PO SCH ×3 (08:13→16:45)
[2016-10-21] MEDS: cetrizine 10 MG TABLET PO SCH (08:14)
[2016-10-21] MEDS ORDERED: hydrALAZINE HCL 25 MG TABLET PO SCH (11:00)
--- NOTE | 2016-10-21 11:28 | NUR ---
MS RN NOTES SPOKE WITH LASHAY TOBAR AND HE HAS RX FROM [facility]. HE WILL ADVISE ONCE MEDICATION IS CONFIRMED WITH INSURANCE
--- NOTE | 2016-10-21 11:36 | NUR ---
MS RN NOTES PER DR DOYLE ORDER HYDRALAZINE 25MG Q8H [place] PO GIVE 1 DOSE NOW
[2016-10-21 12:33] VITALS: BP 135/68
--- NOTE | 2016-10-21 12:46 | NUR ---
MS RN NOTES PER PATIENT SHE IS REQUIRING AMBULANCE TRANSPORT. SET UP ON WILL CALL. AWAITING CM VERIFICATON OF RX BEFORE TRANSPORT
--- NOTE | 2016-10-21 15:40 | NUR ---
MS RN NOTES MESSAGE TO ILENE VEGA IF PLACING MIDLINES TODAY.
[2016-10-21 16:00] VITALS: BP 147/68
[2016-10-21] MEDS: ENOXAPARIN SODIUM 30 MG/0.3 ML DISP.SYRIN SQ SCH (16:17)
--- NOTE | 2016-10-21 16:54 | NUR ---
MS BRUSH CLEARING LABORER PATIENT STABLE NO COMPLICATIONS NO CHANGES. IVS REMOVED PRESSURE AND DRESSING APPLIED NO BLEEDING NOTED. PATIENT SKIN CLEANSED AND NEW DIAPER APPLIED. PATIENT EDUCATED ON DISCHARGE AND STATED UNDERSTANDING ALL QUESTIONS ANSWERED. LASHAY TOBAR SPOKE WITH PATIENT AN ANTIBIOTICS SET UP FOR DISCHARGE. PATIENT BELONGINGS SIGNED AND ACCOUNTED FOR. CAREGIVER AT BEDSIDE TAKING ALL PATIENT BELONGINGS. ALL DUE MEDS GIVEN AND ALL NEEDS MET. PATIENT CARE TRANSFERED TO EMT AND PATIENT LEFT IN STABLE CONDITION NO COMPLICATIONS.
[2016-10-22] MEDS ORDERED: AMLODIPINE BESYLATE 5 MG TABLET PO SCH (09:00)
== END 2016-10-21 17:00 | disposition home or self-care (01) | DRG 871 ==
LOC: ER 13:03 → TELE1 14:29 → MEDSG1 10-17 10:16 → MEDSG2 10-17 16:16
PROVIDERS: ADMIT Internal Medicine; ATTEND Internal Medicine
DX: A41.9 Sepsis, unspecified organism (principal); J96.21 Acute and chronic respiratory failure with hypoxia; J13 Pneumonia due to Streptococcus pneumoniae; E46 Unspecified protein-calorie malnutrition; E87.2 Acidosis; J44.0 Chronic obstructive pulmonary disease with (acute) lower respiratory infection; J44.1 Chronic obstructive pulmonary disease with (acute) exacerbation; I11.0 Hypertensive heart disease with heart failure; E03.9 Hypothyroidism, unspecified; E78.5 Hyperlipidemia, unspecified; K21.9 Gastro-esophageal reflux disease without esophagitis; M21.611 Bunion of right foot; M20.42 Other hammer toe(s) (acquired), left foot; M20.41 Other hammer toe(s) (acquired), right foot; Z87.891 Personal history of nicotine dependence; Z99.81 Dependence on supplemental oxygen; Z95.0 Presence of cardiac pacemaker; M21.612 Bunion of left foot; I25.10 Atherosclerotic heart disease of native coronary artery without angina pectoris; Z88.0 Allergy status to penicillin; Z88.2 Allergy status to sulfonamides; M19.90 Unspecified osteoarthritis, unspecified site; Z88.1 Allergy status to other antibiotic agents; Z68.28 Body mass index [BMI] 28.0-28.9, adult; L89.621 Pressure ulcer of left heel, stage 1; L89.611 Pressure ulcer of right heel, stage 1; S90.412A Abrasion, left great toe, initial encounter; X58.XXXA Exposure to other specified factors, initial encounter; Y93.9 Activity, unspecified; Y92.009 Unspecified place in unspecified non-institutional (private) residence as the place of occurrence of the external cause; I50.9 Heart failure, unspecified; J32.9 Chronic sinusitis, unspecified; Z79.899 Other long term (current) drug therapy; R65.20 Severe sepsis without septic shock
CPT/HCPCS: 36415; 36600; 71010-TC; 71250-TC; 80048-TC; 80061-TC; 80076-TC; 80202-TC; 83605-TC; 83735-TC; 83880; 84100-TC; 84484-TC; 85025-TC; 85730-TC; 87040-TC; 87070-TC; 87081-TC; 87086-TC; 87116; 87206; 94799-TC; 97001-TC; A4216; A4606; J1650; J1956; J2185; J2920; J2930; J3370; J7030; J7060; Z7610